=== PATIENT | male | born 1980 ===

== ENCOUNTER 2022-07-22 08:40 | Outpatient (CLI) | payer OTHER, SELFPAY ==
--- NOTE | 2022-08-21 09:34 | WPDSLEEPSTUD ---
Sleep Study Date of Study: 07/22/22 Ordering Provider: XUAN Kitchen Interpreting Physician: Edie Heart DO Sleep Study Type: Split Polysomnogram Height: 1.7 m Weight: 121.563 kg Body Mass Index: 42.0 Neck Circumference (inches): 19 [place]: 16 Reason for Sleep Study Daytime hypersomnia Sleep History The patient is a 42-year-old male with depression, anxiety, urinary issues and tobacco abuse that had a sleep study ordered by the [facility]monary group for evaluation of sleep apnea. The patient occasionally awakens from sleep short of breath. He frequently awakens at night with heartburn, belching or cough. He frequently snores and is occasionally loud enough that others complain. He frequently has trouble sleeping when he has a cold. He frequently wakes up gasping for air throughout the night. He frequently has breathing problems at night observed by himself or others. He occasionally sweats excessively at night. He rarely has heart palpitations or irregular heartbeats during the night. He frequently falls asleep during the day and occasionally falls asleep while driving. He rarely experiences loss of muscle tone when extremely emotional. He occasionally has trouble at school or work due to sleepiness. He frequently feels unable to move when waking up or falling asleep. He frequently experiences vivid dreamlike scenes upon awakening or falling asleep. He occasionally feels afraid of to sleep. He frequently has nightmares and frequently remembers his dreams. He frequently has thoughts racing through his mind. He occasionally feels sad, depressed and anxious. He constantly has muscular tension. He occasionally notices parts of his body jerk. He frequently kicks during the night. He occasionally has crawling and aching feelings in his legs. He frequently has leg pain during the night. He constantly grinds his teeth during sleep and frequently awakens with morning jaw pain. He is frequently bothered by pain during the day and frequently awakened by pain during the night. He frequently wakes up feeling stiff in the morning. He frequently wakes up with sore or achy muscles. He frequently wakes up with pain in the neck, spine or other joints. He goes to bed at 11:00 p.m. on weekdays and between 11:00 p.m. and midnight on the weekends. It takes him a few minutes to an hour to fall asleep. He wakes up 3-4 times throughout the night for unknown reasons. He is able to fall back asleep within a few minutes. He wakes up at 7:00 a.m. on weekdays and at 8:15 a.m. on the weekends. He will go back to bed on the weekends in sleep until 9:00 a.m. or 11:00 a.m.. He typically gets 7 8 hours of sleep per night. He will stay in bed for a few minutes after waking up in the morning. He currently lives alone. He does not consume any caffeinated beverages within 2 hours of bedtime. He does not engage in physical exercise before bedtime. He will read watch television before falling asleep. He will take naps in the afternoon or the evening but they are not refreshing. He will consume 1-2 caffeinated beverages per day. He is a former smoker. He denies alcohol and recreational drug use. [facility] Past Medical History Medical History Bipolar 1 disorder Impulse control disorder Mood disorder Surgical History Surgical History History of tonsillectomy and adenoidectomy Family History Family History Mother FH: mental illness Sibling Chronic mental illness Social History Social History Social History: Reports he smoked up to 2ppd cigarettes and quit smoking cigarettes December 2020. Now he smokes cigars occasionally on the weekends and smokes tobacco in a pipe about 4 times per day. Smoking status: Current e
[2022-08-21 09:51] VITALS: BMI 42.0
== END 2022-07-23 06:57 | disposition home or self-care (01) ==
LOC: ANHCSM 08:42
PROVIDERS: Visit Provider Physician Assistant
DX: G47.10 Hypersomnia, unspecified (principal); G47.33 Obstructive sleep apnea (adult) (pediatric)
CPT/HCPCS: 95811